=== PATIENT | male | born 1975 | race Caucasian/White ===

== ENCOUNTER 2022-09-25 06:32 | Emergency (ER) | payer OTHER, SELFPAY ==
[2022-09-25 06:36] VITALS: BP 153/93; PULSE 104; RESP 18; TEMP 36.2; O2SAT 97; BMI 37.7
--- NOTE | 2022-09-25 06:57 | CRLHL7_ITS ---
For Patients: As a result of the Century Cures Act, medical imaging exams and procedure reports are released immediately into your electronic medical record. You may view this report before your referring provider. If you have questions, please contact your health care provider. Indication : Fall TECHNIQUE: Two views right shoulder. COMPARISON: None. FINDINGS: The alignment appears anatomic. No acute fracture is detected. There is suspected mild glenohumeral joint degenerative change and there is mild/moderate acromioclavicular joint arthrosis with inferior proliferative osteophyte formation arising from the distal clavicle. The included right lung. IMPRESSION: No acute osseous abnormality detected. Dictated by Sandro Mcdonald MD @ 09/25/2022 7:17:16 AM (Electronically Signed)
--- NOTE | 2022-09-25 07:32 | ED_ITS ---
HPI - General Adult General Date Seen: 09/25/22 Chief complaint: Extremity Pain/Injury, Upper Stated complaint: Fell, R arm injury Time Seen by Provider: 09/25/22 06:44 Source: patient Mode of arrival: ambulatory Limitations: no limitations History of Present Illness HPI narrative: Patient is a 47-year-old male who was going to get into his truck this morning and did not see ice on the driveway. He slipped and landed on his right shoulder. He presents emergency department with complaints that he is having difficulty moving it. He has had a torn bicep on that side that was never repa ired. Related Data Home Medications Medication Instructions Recorded Confirmed ibuprofen 200 mg tablet (Advil) 400 mg PO Q6H 09/24/22 09/24/22 lisinopril 2.5 mg tablet 2.5 mg PO QDAY 09/24/22 09/24/22 oxycodone 5 mg capsule 5 mg PO BID PRN 09/24/22 09/24/22 simvastatin 5 mg tablet 5 mg PO QDAY 09/24/22 09/24/22 Allergies Allergy/AdvReac Type Severity Reaction Status Date / Time No Known Drug Allergies Allergy Verified 09/25/22 06:39 Review of Systems Narrative: He is in the process of getting scheduled for a right hip replacement. He is on medication for hypertension and hyperlipidemia. He gets most of his care in the [facility] in [place]. Review of systems is otherwise noted to be negative. [facility] Medical History (Updated 09/25/22 @ 07:31 by Melvin Cowart MD) Hyperlipidemia Hypertension Obesity Osteoarthritis of right hip Surgical History (Updated 09/24/22 @ 14:31 by Allison Hilliard RN) History of total left knee replacement (08/2020) History of total right knee replacement (05/2021) Family History (Updated 09/24/22 @ 14:22 by Allison Hilliard RN) Father Degenerative arthritis Social History Smoking Status: Never smoker Do you use any of these nicotine containing products: None How often do you have a drink containing alcohol: 4 or more times a week Alcohol type: beer How many standard drinks containing alcohol do you have on a typical day: 3 or 4 How often do you have six or more drinks on one occasion: Less than monthly AUDIT-C Alcohol total score: 6 Non-prescribed substance use: denies use and opiods/painkillers Caffeine: No Exam Narrative: Exam Narrative: On exam there is no outward evidence of trauma to the right shoulder. He has limited ability to fully abduct or elevate shoulder. There is tenderness anteriorly and laterally. Normal neurologic exam. No bony tenderness. Const: Vital Signs, click to edit/add: Vital Signs - 24 hr 09/25/22 06:36 Temperature 97.2 F L Pulse Rate [Pulse Oximeter] 104 H Respiratory Rate 18 Blood Pressure [Le ft Upper Arm] 153/93 H Pulse Oximetry 97 Oxygen Delivery Me thod Room Air Course Course Hospital Course: Patient seen and examined. X-ray of the right shoulder is negative for fracture. Vital Signs Vital signs: Initial Vital Signs Temperature 97.2 F L 09/25/22 06:36 Temperature Source Temporal Artery Scan 09/25/22 06:36 Pulse Rate 104 H 09/25/22 06:36 Pulse Rhythm 09/25/22 06:36 Pulse Strength 3+ Normal 09/25/22 06:36 Respiratory Rate 18 09/25/22 06:36 Blood Pressure 153/93 H 09/25/22 06:36 Blood Pressure Mean 113 09/25/22 06:36 Blood Pressure Position Sitting 09/25/22 06:36 Pulse Oximetry 97 09/25/22 06:36 Oxygen Delivery Method 09/25/22 06:36 Vital Signs Temperature 97.2 F L 09/25/22 06:36 Pulse Rate 104 H 09/25/22 06:36 Respiratory Rate 18 09/25/22 06:36 Blood Pressure 153/93 H 09/25/22 06:36 Pulse Oximetry 97 09/25/22 06:36 Oxygen Delivery Method 09/25/22 06:36 Temperature 97.2 F L 09/25/22 06:36 Pulse Rate 104 H 09/25/22 06:36 Respiratory Rate 18 09/25/22 06:36 Blood Pressure 153/93 H 09/25/22 06:36 Pulse Oximetry 97 09/25/22 06:36 Oxygen Delivery Method 09/25/22 06:36 Discharge Plan Discharge Clinical Impression: Injury of right shoulder Patient Disposition: Home, Self-Care Condition: Stable Additional Instructions: Rest, ice, Ibuprofen, gentle range of motion. Follow up in the clinic if no improvement over the next 3-5 days. Prescriptions: No Action simvastatin 5 mg tablet 5 mg PO QDAY lisinopril 2.5 mg tablet 2.5 mg PO QDAY oxycodone 5 mg capsule 5 mg PO BID PRN ibuprofen [Advil] 200 mg tablet 400 mg PO Q6H Follow Up/Referrals: Blanca Villagomez MD [Primary Care Provider] - Stand Alone Forms: [facility] Info Instructions
== END 2022-09-25 07:36 | disposition home or self-care (01) ==
PROVIDERS: Emergency Provider Family Medicine; PCP Family Medicine
DX: M25.511 Pain in right shoulder (principal); W00.9XXA Unspecified fall due to ice and snow, initial encounter
CPT/HCPCS: 73030; 99282; 99283

== ENCOUNTER 2022-10-14 09:37 | Day surgery (SDC) | payer OTHER, SELFPAY ==
[2022-10-14] VITALS (27 sets, daily range): BP systolic 105–146; BP diastolic 60–107; PULSE 67–110; RESP 16–18; TEMP 36.1–36.8; O2SAT 92–98; BMI 34.7
[2022-10-14] MEDS: ACETAMINOPHEN 500 MG TABLET 1000 MG PO ×3 (09:50→21:03)
[2022-10-14] MEDS: CELECOXIB 200 MG CAPSULE PO ×2 (09:50→21:02)
[2022-10-14] MEDS: OXYCODONE (CR) 10 MG TAB.ER.12H PO (09:50)
[2022-10-14] MEDS: SODIUM CHLORIDE 0.9 % (FLUSH) 10 ML SYRINGE IVF (10:00)
[2022-10-14] MEDS: LACTATED RINGERS 1000 ML 1,000 ML 100 ML IV ×2 (10:00→12:49)
--- NOTE | 2022-10-14 10:35 | CRLHL7_ITS ---
For Patients: As a result of the Century Cures Act, medical imaging exams and procedure reports are released immediately into your electronic medical record. You may view this report before your referring provider. If you have questions, please contact your health care provider. INDICATION: Follow up a right hip arthroplasty. TECHNIQUE: AP pelvis and cross table lateral view of the right hip. FINDINGS: New right hip arthroplasty. The components are adequately aligned and well seated. Air within the soft tissues of the proximal lateral thigh compatible with recent surgery. IMPRESSION: Right hip arthroplasty. Dictated by Carlos Lang MD @ 10/14/2022 3:01:04 PM (Electronically Signed)
--- NOTE | 2022-10-14 10:42 | W.ANESCHARGE ---
Anesthesia Charges Start Date/Time Anesthesia Start Date: 10/14/22 Anesthesia Start Time: 11:22 Stop Date/Time Anesthesia Stop Date: 10/14/22 Anesthesia Stop Time: 14:07
[2022-10-14] MEDS: fentaNYL 100 MCG/2 ML inj IVP (10:59)
[2022-10-14] MEDS: MIDAZOLAM HCL 1 MG/ML inj IVP (10:59)
[2022-10-14] MEDS: SCOPOLAMINE 1 MG/3 DAY PATCH 1 PATCH TRANSDERMA (11:05)
--- NOTE | 2022-10-14 11:11 | SUR.PREOP ---
TIME?OUT:?1058 PT/Kathleen CONTRERAS RN/Cindy ADEN MDA?VERIFICATION?OF?SURGICAL?SITE,?PROCEDURE,?AND?CONSENT OBTAINED?PRIOR?TO?INVASIVE?PROCEDURE.
--- NOTE | 2022-10-14 11:30 | CRLHL7_ITS ---
For Patients: As a result of the Century Cures Act, medical imaging exams and procedure reports are released immediately into your electronic medical record. You may view this report before your referring provider. If you have questions, please contact your health care provider. INDICATION: Right hip arthroplasty. TECHNIQUE: Single portable spot intraoperative images the right hip. Fluoroscopic guidance utilized. FINDINGS: A single spot image of the right hip demonstrates a right hip arthroplasty. The components are adequately aligned. 44.9 seconds fluoroscopy time utilized intraoperatively. IMPRESSION : 44.9 seconds fluoroscopy time utilized intraoperatively. Dictated by Carlos Lang MD @ 10/14/2022 2:54:19 PM (Electronically Signed)
[2022-10-14] MEDS: CEFAZOLIN 2 GM in 0.9 % SODIUM CHLORIDE Mini-bag 100 ML IVPB ×2 (11:31→17:05)
[2022-10-14] MEDS: TRANEXAMIC ACID 100 MG/ML INJ 1000 MG IV (11:35)
--- NOTE | 2022-10-14 11:55 | W.PM.NB ---
Nerve Block Nerve Block Time Seen by Provider: 11:02 Date Seen: 10/14/22 Type of block requested by surgeon for post-operative analgesia: FRANKY/LFCN Side: right Time out performed: Yes Verification of patient name: Yes Verification of date of : Yes Site marking: site marked Name of person performing procedure: Cj Continuous monitoring Was continuous monitoring of O2 sat, B/P, diagnostic cardiac sonographer, recorded every 15 minutes?: Yes Procedure Checklist: sterile prep, needles and gloves Ultrasound guided. Images saved: Yes Medications given in 5ml increments after negative aspiration: Ropivicaine %: 0.5 mL: 30 Needle gauge: 20 Decadron (mg): 10 Precedex (mcg): 25 Patient tolerated procedure well: Yes Additional comments: Needle noted below psoas tendon needle noted adjacent to LFCN Block Charges Block Charge (with Pro Fee): Other Periph Nerve Block Use of Ultrasound Machine for Block: Yes- US Guidance/pain block
--- NOTE | 2022-10-14 12:56 | SUR.OPER ---
PATIENT QUESTIONS ANSWERED SATISFACTORILY PREOPERATIVELY.? PATIENT BROUGHT TO OR #4 PER CART AFTER ADMINISTRATION OF A BLOCK.? Patient positioned supine on OR #4 bed.? The perioperative?team supported arms bilaterally on arm boards.? Final approval of positioning by surgeon.
--- NOTE | 2022-10-14 13:22 | P.ORPRC_ITS ---
Procedure Note Date of procedure: 10/14/22 Procedure: PREOPERATIVE DIAGNOSIS: 1. Right hip osteoarthritis, severe, primary 2. Obesity-BMI 34.8 POSTOPERATIVE DIAGNOSIS: 1. Right hip osteoarthritis, severe, primary 2. Obesity-BMI 34.8 PROCEDURE: 1. Right total hip arthroplasty-anterior approach of note, 25% added difficulty for this case due to combination of patient's shear mass of 116 kg, young muscular male, and a BMI of 34.8. This combination resulted in substantially increased depth of the wound, tightness of structures, and difficulty with exposure requiring deeper retractors and more assistance. 2. [id number] - intraoperative fluoroscopy up to 1 hour. SURGEON: Parviz Howard MD. APPRAISER AUDITOR: Arslan Marroquin PA-C; LITO Camp - Of note, a skilled clinical trial assistant was critical for this case to aid in patient positioning, tissue retraction, limb manipulation/positioning, and closure. ANESTHESIA: General endotracheal anesthetic EBL: 400 mL IMPLANTS: DePuy J&J uncemented total hip [place] cup size 56, hole eliminator, +4 neutral liner Actis stem, standard offset, size 6 +8.5 mm ceramic 36 mm head COMPLICATIONS: None evident INDICATIONS: The patient is a pleasant 47-year-old male who has experienced severe right hip pain and difficulty bearing weight. Workup included x-rays which revealed severe osteoarthrosis in the hip. Given the deformity, the dysfunction, and the pain, as well as the failure of nonoperative management, recommendation was made for surgery. FINDINGS: Full-thickness chondral loss broadly throughout the femoral head with significant osteophytosis around the femoral head/neck junction and around the perimeter of the acetabulum. Moderate effusion upon entering the joint. Significantly tight, muscular tissues surrounding the hip joint with a thick capsule. DESCRIPTION OF PROCEDURE: Following a thorough discussion of risks, benefits, and alternatives consent was obtained and the right hip was marked. The patient was brought to the operating room and placed supine on the operating table. Induction of anesthesia was undertaken. 2 g IV Ancef and 1 g tranexamic acid was administered within 1 hr of incision preoperatively. Proper time-out was performed identifying proper patient, site, procedure. The operative extremity was prepped and draped in the appropriate sterile fashion using ChloraPrep after the patient was positioned on the [place] table with head in neutral alignment and all bony prominences well padded. C-arm fluoroscopic imaging was utilized to confirm proper pelvis rotation and position, and to get true AP films of both the contralateral left, and the affected right hip. This is for comparison. A longitudinal incision was made starting approximately 1 cm distal to the ASIS, and 3-4 cm lateral. The incision was extended distally aiming toward the lateral border the patella. Sharp incision through skin and bovie cautery through the subcutaneous tissue allowed identification of the TFL fascia. This was sharply divided, and the fascia bluntly released from the muscle fibers as we dissected medial. Upon coming to the medial border, we were able to retract the TFL laterally, and penetrated the deeper fascia and identify the crossing circumflex vessels. These were ligated/cauterized. The rectus was elevated from the capsule, and retractors placed laterally and medially along the femoral neck to help with visualization of the capsule. We then performed an inverted T capsulotomy. The capsule was tagged for later repair. Retractors were placed inside the capsule. The femoral neck was visualized after releasing medially down to the lesser trochanter, along the saddle laterally, and up onto the acetabulum. The femoral neck cut was made in line with our preoperative templating. The head was removed in a single piece, and sized. We turned our attention to acetabular preparation. Initially, the labrum was resected from around the perimeter, the pulvinar was excised, allowing us to visualize the false wall. We started the reaming with a 43 mm reamer. This was medialized down to the true wall. We then enlarged our reamers sequentially up to one size less than the selected cup size. We trialed at the same size and found it to have an excellent fit. The selected cup was then opened, inserted, and impacted in line with the goal of 40? of abduction, and 20-25? of anteversion. This was confirmed on C-arm fluoroscopic imaging to be in the appropriate/goal position. Once the cup was placed we placed a hole eliminator and a liner consistent with preop planning. Attention was turned to the femoral preparation. The limb was extended, externally rotated, and adducted. The posteromedial capsule was released, as retractors were placed allowing excellent access to the proximal femur. Initially a box spring frame builder was followed by canal finder followed by various broaches. We broached sequentially up to the size noted above, found it to have excellent rotational control, and trialing various heads and necks, revealed that appropriate neck offset, and the above noted head size provided the greatest stability, and confucianist of length, and offset. C-arm fluoroscopic imaging confirmed position of the stem, as well as leg lengths, which were compared with the pre procedure all fluoroscopic images. Trial implants were removed, the real femoral stem inserted, as was the appropriate head. After reducing, the leg was placed through range of motion and stability was confirmed anterior, posterior, and lateral. A 3 min Betadine soak was then performed, and thorough irrigation with normal saline followed. Closure of the capsule was performed with #1 PDS. Bleeding was confirmed to be controlled at this stage, and the TFL fascia was closed with #0 strata fix. Subcutaneous, and subcuticular closure was performed with 2-0 Vicryl and 4-0 Monocryl, respectively. Dressings were applied, and the patient was awoken from anesthesia and transferred the PACU in stable condition. A skilled clinical trial assistant was critical for this case to aid in patient positioning, tissue retraction, acetabular and proximal femoral exposure, limb manipulation/positioning, dislocation/relocation, patient safety, and closure. * again, 25% added difficulty for this case due to combination of patient's she ar mass of 116 kg, young muscular male, and obesity (BMI of 34.8). This combination resulted in substantially increased depth of the wound, tightness of structures, and difficulty with exposure requiring deeper retractors and more assistance. PLAN: 1. Weight bear as tolerated operative extremity. 2. 23 hr perioperative antibiotics. 3. Ice. 4. PT/OT consults for ambulation assistance/mobility education. 5. Social work consult for discharge planning. 6. DVT prophylaxis with at SCDs, Avila Blankenship, and Xarelto x5 days followed by aspirin for a total of 1 month..
--- NOTE | 2022-10-14 14:10 | W.ANESCHARGE ---
Anesthesia Charges Start Date/Time Anesthesia Start Date: 10/14/22 Anesthesia Start Time: 11:22 Stop Date/Time Anesthesia Stop Date: 10/14/22 Anesthesia Stop Time: 14:07
[2022-10-14] MEDS: HYDROmorphone 0.5 mg/0.5 ml inj IVP ×3 (14:22→15:34)
--- NOTE | 2022-10-14 15:10 | SUR.PHASEI ---
Patient meets parameters for discharge from pacu. Upon departure, patient was repositioning himself in the bed and he placed pressure on the IV. The IV fell out of the site/vein. The catheter was intact. Jose Juan Michel said to continue to Med Surg and they can restart the IV.
--- NOTE | 2022-10-14 15:36 | PM.IMCN1 ---
Date of Consult Consult date: 10/14/22 Requesting Physician: Orthopedics Primary Care Provider: Evangelist Benjamin MD Consult Narrative Reason for consult: Management of medical problems following hip surgery Narrative: David Reyes is a 47 year old male underwent right total hip arthroplasty by Dr. Howard today. Procedure was uncomplicated. Postoperatively he reports having pain in his right hip and extending down his right leg. He is not having numbness or weakness in his right leg. That pain going down his right leg was present prior to surgery as well. He is not having chills, nausea, dyspnea. Preoperatively reports he was doing well he had no recent illness or injury. He had a preop physical over there were no perioperative concerns identified Review of Systems Narrative: No recent illness or injury. His notes that he does snore. He is not interested in evaluation of sleep apnea. 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 Code status is full. is healthcare power of employment law attorney. His home has no steps to get in to the main level and he can live on the main level without walking on stairs. Smoking Status: Never smoker Do you use any of these nicotine containing products: None How often do you have a drink containing alcohol: 4 or more times a week Alcohol type: beer How many standard drinks containing alcohol do you have on a typical day: 3 or 4 How often do you have six or more drinks on one occasion: Less than monthly AUDIT-C Alcohol total score: 6 Non-prescribed substance use: denies use and opiods/painkillers Caffeine: No Meds Home Medications and Allergies Home Medications Medication Instructions Recorded Confirmed Type ibuprofen 200 mg tablet (Advil) 400 mg PO Q6H 09/24/22 10/14/22 History clobetasol 0.05 % topical cream 1 applic topical BID PRN 10/14/22 10/14/22 History lisinopril 10 2 tab PO DAILY 10/14/22 10/14/22 History mg-hydrochlorothiazide 12.5 mg tablet oxycodone 5 mg tablet 5 - 10 mg PO Q4H PRN 10/14/22 10/14/22 History simvastatin 20 mg tablet 20 mg PO HS 10/14/22 10/14/22 History Home Medication Comments: Patient reports taking ibuprofen 800 mg every 4 hours or a total of 4800 mg per day. Allergies Allergy/AdvReac Type Severity Reaction Status Date / Time No Known Drug Allergies Allergy Verified 10/14/22 10:05 Exam Narrative: Exam Narrative: He is alert and appears in no distress. Eyes normal. Oropharynx with small airway. Neck is supple without mass or adenopathy. Respirations are clear to auscultation. Cardiovascular: S1, S2, regular rate and rhythm. No murmur gallop or rub. Abdomen: Bowel sounds active. Abdomen is soft without tenderness or mass. Extremities examined. He has intact pedal pulses. No significant edema. He has intact sensation in his feet. He moves his feet and ankles well without weakness. No sign of trauma, bruising, redness, rash on either lower extremity. Const: Vital Signs, click to edit/add: Vital Signs - 24 hr 10/14/22 10:07 10/14/22 10:56 10/14/22 11:00 Temperature 97.9 F Pulse Rate 110 H 81 80 Respiratory Rate 16 16 16 Blood Pressure 135/90 H 138/107 H 120/84 Pulse Oximetry 93 97 97 Oxygen Delivery Me thod Room Air Nasal Cannula Nasal Cannula Oxygen Flow Rate 2 2 10/14/22 14:03 10/14/22 14:20 10/14/22 14:25 Temperature 97 F L Pulse Rate 74 81 81 Respiratory Rate 16 16 16 Blood Pressure 120/73 112/75 125/71 Pulse Oximetry 92 97 97 Oxygen Delivery Me thod Nasal Cannula Nasal Cannula Oxygen Flow Rate 4 3 10/14/22 14:35 10/14/22 14:05 10/14/22 14:10 Temperature Pulse Rate 80 70 74 Respiratory Rate 16 16 16 Blood Pressure 114/61 107/71 110/67 Pulse Oximetry 98 95 95 Oxygen Delivery Me thod Oxygen Flow Rate 10/14/22 14:15 10/14/22 14:30 10/14/22 14:40 Temperature Pulse Rate 79 67 73 Respiratory Rate 16 16 18 Blood Pressure 116/71 114/70 124/67 Pulse Oximetry 95 98 97 Oxygen Delivery Me thod Nasal Cannula Nasal Cannula Room Air Oxygen Flow Rate 4 2 10/14/22 14:45 10/14/22 14:50 10/14/22 14:56 Temperature 97.1 F L Pulse Rate 73 93 80 Respiratory Rate 18 16 16 Blood Pressure 124/67 124/67 111/60 Pulse Oximetry 97 96 98 Oxygen Delivery Me thod Room Air Room Air Oxygen Flow Rate Documenting provider has reviewed patient's vital signs: yes Assessment and Plan Assessment and plan (1) Osteoarthritis of right hip: Problem comment: Severe, status post right total hip arthroplasty by Dr. Howard 10/14/2022. Routine therapy and pain management. Status: Chronic (2) Sleep apnea: Problem comment: Monitor for nocturnal hypoxia. Outpatient follow-up if willing. Status: Suspected (3) Obesity: Status: Acute (4) Hypertension: Problem comment: Resume blood pressure medicines as blood pressure allows Status: Acute (5) Pain of right lower extremity: Problem comment: Pain shooting down his right leg preexisted his hip surgery. No obvious radicular findings or neuro deficits noted today. Monitor as he recovers from surgery. Status: Acute Plan Admit to the hospital for routine pain management and therapy. Will monitor and manage his other medical problems during his hospital stay. Anticipate discharge to home tomorrow for outpatient follow-up. Total time spent is 40 minutes, 30 minutes in coordination of care discussing with patient other providers ongoing evaluation management of medical problems following surgery
[2022-10-14] MEDS: LACTATED RINGERS 1000 ML 1,000 ML 75 ML IV (15:41)
--- NOTE | 2022-10-14 19:28 | PC.NURSE ---
shift note: pt to room @ 1510 via bed. pt a&ox3. post vss intiated. New IV to Lt FA started with 1 attempt. LS clr. IS to 1999 indept. Pt moving bilat l/e w/o difficulty. cms intact. PP+ bilat. Pt ambulated in [place] 1/walker 400ft with steady gait. drsg to rt thigh c/d/i with active ice in place. Pt tolerating regular diet.
[2022-10-14] MEDS: OXYCODONE 5 MG TABLET PO (19:30)
[2022-10-14] MEDS: SIMVASTATIN 20 MG TABLET PO (21:02)
[2022-10-14] MEDS: SENNOSIDES 1 TAB TABLET 2 TAB PO (21:03)
--- NOTE | 2022-10-14 23:01 | PC.NURSE ---
[id number]: Pain well controlled. Ambulates well with assist x1 with walker and GB. Walked unit approx 300ft. Drinking a lot of water, about 3,000 PO intake this evening. Pt unable to void post-op. Compound Worker offered bladder scan and straight cath. Pt refusing at this time and requests additional time to attempt voiding. Will reapproach. Surgical dressing C,D,&I with active ice.
[2022-10-15 00:12] VITALS: BP 145/85; PULSE 81; RESP 18; TEMP 37.1; O2SAT 93
[2022-10-15] MEDS: CEFAZOLIN 2 GM in 0.9 % SODIUM CHLORIDE Mini-bag 100 ML IVPB ×2 (00:20→08:09)
[2022-10-15] MEDS: OXYCODONE 5 MG TABLET PO ×4 (00:21→08:19)
[2022-10-15] MEDS: ACETAMINOPHEN 500 MG TABLET 1000 MG PO ×2 (03:23→10:12)
[2022-10-15 03:28] VITALS: BP 135/82; PULSE 74; RESP 16; TEMP 37; O2SAT 95
--- NOTE | 2022-10-15 05:55 | PC.NURSE ---
[id number]: Patient cooperative with cares. Rates pain 10/25. PRN Oxycodone and active ice for relief. CMS intact. Denies N/V. Walk the halls x1 and moving well. Dressing to R. hip C/D/I.
[2022-10-15 06:53] LABS: Basophils Percent Auto 0.1 % (0.0-3.0); Hematocrit 31.9 % (37.0-53.0); Immature Granulocytes Pct Auto 0.3 %; Lymphocytes Percent Auto 6.8 % (20-44); Mean Corpuscular HGB Conc 35 gm/dL (32-36); Mean Corpuscular Hemoglobin 31 pg (26-34); Mean Corpuscular Volume 91 fL (80-100); Monocytes Percent Auto 5.5 % (0.0-11.0); Neutrophils Percent Auto 87.3 % (42.0-72.0); Platelet Count* 220 K/uL (140-440); RDW Coefficient of Variation % 11.9 % (11.5-15.5); Red Blood Count 3.51 m/uL (4.30-5.90); White Blood Count* 13.76 K/uL (4.50-11.00)
[2022-10-15 06:57] LABS: Slide Review Reflex No
[2022-10-15 06:58] LABS: Potassium* 4.1 mmol/L (3.6-5.1); Sodium* 129 mmol/L (135-149)
[2022-10-15 07:01] LABS: Blood Urea Nitrogen* 21 mg/dL (5-24); Creatinine* 1.2 mg/dL (0.5-1.5); Est. Creatinine Clearance* 82.63; Estimated Glomerular Filt Rate 75 ml/min
[2022-10-15 07:30] VITALS: BP 120/62; PULSE 84; RESP 18; TEMP 37; O2SAT 95
[2022-10-15] MEDS: SENNOSIDES 1 TAB TABLET 2 TAB PO (08:17)
[2022-10-15] MEDS: CELECOXIB 200 MG CAPSULE PO (08:18)
[2022-10-15] MEDS: RIVAROXABAN 10 MG TABLET PO (08:19)
--- NOTE | 2022-10-15 09:22 | P.ORPN_ITS ---
Subjective Subjective Date Seen: 10/15/22 Principal diagnosis: Status postop day 1, right total hip arthroplasty - anterior approach Interval history: Patient reports doing well. No acute events over night. Pain managed with scheduled /PRN medications and ice. DVT prophylaxis rivaroxaban, bilateral knee high Avila stockings, and SCDs. Denies fevers, chills, aches, N/V, CP, SOB/WESTFALL, tachycardia, or lightheadedness. Denies any further right ankle pain that he w as experiencing in PACU. Ortho Exam Narrative Exam Narrative: -Patient appears comfortable in recliner; no apparent acute distress -Alert and oriented times 3 -Operative hip swollen; soft tissues supple; no obvious erythema. Ecchymosis minimal. Warmth appropriate -Surgical dressing clean, dry, intact; no obvious drainage, no erythematous streaking peripheral to the bandage -Bilateral calves soft and supple; no significant swelling, edema, tenderness, erythema, discoloration, warmth, or palpable cords -2+ DP/PT pulses, intact dermatomes and myotomes distally (5/5 strength). No numbness about the lateral femoral cutaneous nerve distribution. Const Vital Signs, click to edit/add: Vital Signs - 24 hr 10/14/22 10:07 10/14/22 10:56 10/14/22 11:00 Temperature 97.9 F Pulse Rate 110 H 81 80 Pulse Rate [Pulse Oximeter] Respiratory Rate 16 16 16 Blood Pressure 135/90 H 138/107 H 120/84 Blood Pressure [Left Arm] Pulse Oximetry 93 97 97 Oxygen Delivery Method Room Air Nasal Cannula Nasal Cannula Oxygen Flow Rate 2 2 10/14/22 14:03 10/14/22 14:20 10/14/22 14:25 Temperature 97 F L Pulse Rate 74 81 81 Pulse Rate [Pulse Oximeter] Respiratory Rate 16 16 16 Blood Pressure 120/73 112/75 125/71 Blood Pressure [Left Arm] Pulse Oximetry 92 97 97 Oxygen Delivery Method Nasal Cannula Nasal Cannula Oxygen Flow Rate 4 3 10/14/22 14:35 10/14/22 14:05 10/14/22 14:10 Temperature Pulse Rate 80 70 74 Pulse Rate [Pulse Oximeter] Respiratory Rate 16 16 16 Blood Pressure 114/61 107/71 110/67 Blood Pressure [Left Arm] Pulse Oximetry 98 95 95 Oxygen Delivery Method Oxygen Flow Rate 10/14/22 14:15 10/14/22 14:30 10/14/22 14:40 Temperature Pulse Rate 79 67 73 Pulse Rate [Pulse Oximeter] Respiratory Rate 16 16 18 Blood Pressure 116/71 114/70 124/67 Blood Pressure [Left Arm] Pulse Oximetry 95 98 97 Oxygen Delivery Method Nasal Cannula Nasal Cannula Room Air Oxygen Flow Rate 4 2 10/14/22 14:45 10/14/22 14:50 10/14/22 14:56 Temperature 97.1 F L Pulse Rate 73 93 80 Pulse Rate [Pulse Oximeter] Respiratory Rate 18 16 16 Blood Pressure 124/67 124/67 111/60 Blood Pressure [Left Arm] Pulse Oximetry 97 96 98 Oxygen Delivery Method Room Air Room Air Oxygen Flow Rate 10/14/22 15:10 10/14/22 15:10 10/14/22 15:10 Temperature 98 F 98 F 98 F Pulse Rate 83 Pulse Rate [Pulse Oximeter] 86 Respiratory Rate 16 16 18 Blood Pressure Blood Pressure [Left Arm] 105/71 105/71 113/70 Pulse Oximetry 98 98 Oxygen Delivery Method Room Air Room Air Oxygen Flow Rate 10/14/22 17:41 10/14/22 15:30 10/14/22 15:45 Temperature 98 F 98 F 98.2 F Pulse Rate Pulse Rate [Pulse Oximeter] 86 99 98 Respiratory Rate 18 18 18 Blood Pressure Blood Pressure [Left Arm] 113/70 111/75 128/75 Pulse Oximetry 98 98 98 Oxygen Delivery Method Room Air Room Air Room Air Oxygen Flow Rate 2 10/14/22 16:26 10/14/22 16:30 10/14/22 17:01 Temperature 98.2 F 98 F 98.2 F Pulse Rate Pulse Rate [Pulse Oximeter] 97 70 105 H Respiratory Rate 18 18 18 Blood Pressure Blood Pressure [Left Arm] 114/70 134/99 H 106/62 Pulse Oximetry 98 95 98 Oxygen Delivery Method Room Air Room Air Room Air Oxygen Flow Rate 10/14/22 18:00 10/14/22 21:03 10/14/22 19:00 Temperature 98.3 F 98.2 F Pulse Rate Pulse Rate [Pulse Oximeter] 89 86 Respiratory Rate 18 18 Blood Pressure Blood Pressure [Left Arm] 125/74 128/78 Pulse Oximetry 94 97 Oxygen Delivery Method Room Air Room Air Oxygen Flow Rate 10/14/22 20:00 10/14/22 22:59 10/15/22 00:12 Temperature 98.7 F Pulse Rate Pulse Rate [Pulse Oximeter] 82 76 81 Respiratory Rate 18 18 18 Blood Pressure Blood Pressure [Left Arm] 146/85 H 132/78 145/85 H Pulse Oximetry 95 96 93 Oxygen Delivery Method Room Air Room Air Room Air Oxygen Flow Rate 10/15/22 03:28 Temperature 98.6 F Pulse Rate Pulse Rate [Pulse Oximeter] 74 Respiratory Rate 16 Blood Pressure Blood Pressure [Left Arm] 135/82 Pulse Oximetry 95 Oxygen Delivery Method Room Air Oxygen Flow Rate Assessment and Plan Assessment and plan (1) Osteoarthritis of right hip: Problem details: Severe, status post (POD 1) right total hip arthroplasty by Dr. Howard 10/14/2022. Routine therapy and pain management. Status: Chronic (2) Sleep apnea: Problem details: Monitor for nocturnal hypoxia. Outpatient follow-up if willing. Status: Suspected (3) Obesity: Status: Acute (4) Hypertension: Problem details: Resume blood pressure medicines as blood pressure allows Status: Acute (5) Pain of right lower extremity: Problem details: Pain shooting down his right leg preexisted his hip surgery. No obvious radicular findings or neuro deficits noted today. Monitor as he recovers from surgery. Status: Acute Plan - Complete 23 hour perioperative antibiotics. - PT/OT consult for education and assistance. - Social work consult for discharge planning - Prescribed analgesics as needed - DVT prophylaxis: Rivaroxaban, bilateral knee high Avila Hose stockings and SCDs - We discussed limiting his ibuprofen use, as he has classically taken 800 mg ibuprofen every 4 hours. He says his hip feels much better than it did when he walked into surgery, thus he feels there will not be need for this ibuprofen in the future - Anticipation is for discharge to home with spouse 10/15/2022 if the patient remains medically stable, pain is controlled, and they are safe with mobil ization.
--- NOTE | 2022-10-15 09:26 | P.DS_ITS ---
DS: Providers Provider Date Seen: 10/15/22 Date of admission: Med/Surg Recovery 10/14/2022 Primary care physician: Evangelist Benjamin MD Consults: 10/14/22 15:07 Consult to Occupational Therapy [CONS] Routine Comment: Reason(s) for OT Consult:: ADLs Prior to Discharge Any Restrictions?:: No Restrictions Comment: Consult to Physical Therapy [CONS] Routine Comment: Ambulate in the [place] today Reason(s) for PT Consult:: Evaluate and Treat Any Restrictions?:: No Restrictions Comment: Nursing Activity Consult to Physician [CONS] Routine Comment: Consulting Provider: Hospitalists Has provider been notified: No Consult to Donor Relations Associate [CONS] Routine Comment: Reason for Consult:: Discharge Planning Needs Attending Physician on discharge: Parviz Howard MD Date of Discharge: 10/15/22 DS: Diagnosis Discharge Diagnosis (1) Osteoarthritis of right hip: Status: Chronic Problem details: Severe, status post (POD 1) right total hip arthroplasty by Dr. Howard 10/14/2022. Routine therapy and pain management. DS: Summary Hospital Course Hospital Course: The patient has a history of right hip osteoarthritis, primary, severe. After appropriate preoperative evaluation, the patient underwent right total hip arthroplasty. Postoperatively given anticoagulation for deep vein thrombosis prophylaxis. They progressed to PT/OT and were felt ready and prepared for discharge to home with appropriate pain medication and anticoagulation medications. Status at Discharge Functional status at discharge: uses cane/walker Overall status at discharge: patient is progressing back to baseline Time Spent with Patient Time attestation: Total time spent providing and/or coordinating discharge services: Time spent: Less than 30 minutes Exam Const: Vital Signs, click to edit/add: Vital Signs - 24 hr 10/14/22 10:07 10/14/22 10:56 10/14/22 11:00 Temperature 97.9 F Pulse Rate 110 H 81 80 Pulse Rate [Pulse Oximeter] Respiratory Rate 16 16 16 Blood Pressure 135/90 H 138/107 H 120/84 Blood Pressure [Le ft Arm] Pulse Oximetry 93 97 97 Oxygen Delivery Me thod Room Air Nasal Cannula Nasal Cannula Oxygen Flow Rate 2 2 10/14/22 14:03 10/14/22 14:20 10/14/22 14:25 Temperature 97 F L Pulse Rate 74 81 81 Pulse Rate [Pulse Oximeter] Respiratory Rate 16 16 16 Blood Pressure 120/73 112/75 125/71 Blood Pressure [Le ft Arm] Pulse Oximetry 92 97 97 Oxygen Delivery Me thod Nasal Cannula Nasal Cannula Oxygen Flow Rate 4 3 10/14/22 14:35 10/14/22 14:05 10/14/22 14:10 Temperature Pulse Rate 80 70 74 Pulse Rate [Pulse Oximeter] Respiratory Rate 16 16 16 Blood Pressure 114/61 107/71 110/67 Blood Pressure [Le ft Arm] Pulse Oximetry 98 95 95 Oxygen Delivery Me thod Oxygen Flow Rate 10/14/22 14:15 10/14/22 14:30 10/14/22 14:40 Temperature Pulse Rate 79 67 73 Pulse Rate [Pulse Oximeter] Respiratory Rate 16 16 18 Blood Pressure 116/71 114/70 124/67 Blood Pressure [Le ft Arm] Pulse Oximetry 95 98 97 Oxygen Delivery Me thod Nasal Cannula Nasal Cannula Room Air Oxygen Flow Rate 4 2 10/14/22 14:45 10/14/22 14:50 10/14/22 14:56 Temperature 97.1 F L Pulse Rate 73 93 80 Pulse Rate [Pulse Oximeter] Respiratory Rate 18 16 16 Blood Pressure 124/67 124/67 111/60 Blood Pressure [Le ft Arm] Pulse Oximetry 97 96 98 Oxygen Delivery Me thod Room Air Room Air Oxygen Flow Rate 10/14/22 15:10 10/14/22 15:10 10/14/22 15:10 Temperature 98 F 98 F 98 F Pulse Rate 83 Pulse Rate [Pulse Oximeter] 86 Respiratory Rate 16 16 18 Blood Pressure Blood Pressure [Le ft Arm] 105/71 105/71 113/70 Pulse Oximetry 98 98 Oxygen Delivery Me thod Room Air Room Air Oxygen Flow Rate 10/14/22 17:41 10/14/22 15:30 10/14/22 15:45 Temperature 98 F 98 F 98.2 F Pulse Rate Pulse Rate [Pulse Oximeter] 86 99 98 Respiratory Rate 18 18 18 Blood Pressure Blood Pressure [Le ft Arm] 113/70 111/75 128/75 Pulse Oximetry 98 98 98 Oxygen Delivery Me thod Room Air Room Air Room Air Oxygen Flow Rate 2 10/14/22 16:26 10/14/22 16:30 10/14/22 17:01 Temperature 98.2 F 98 F 98.2 F Pulse Rate Pulse Rate [Pulse Oximeter] 97 70 105 H Respiratory Rate 18 18 18 Blood Pressure Blood Pressure [Le ft Arm] 114/70 134/99 H 106/62 Pulse Oximetry 98 95 98 Oxygen Delivery Me thod Room Air Room Air Room Air Oxygen Flow Rate 10/14/22 18:00 10/14/22 21:03 10/14/22 19:00 Temperature 98.3 F 98.2 F Pulse Rate Pulse Rate [Pulse Oximeter] 89 86 Respiratory Rate 18 18 Blood Pressure Blood Pressure [Le ft Arm] 125/74 128/78 Pulse Oximetry 94 97 Oxygen Delivery Me thod Room Air Room Air Oxygen Flow Rate 10/14/22 20:00 10/14/22 22:59 10/15/22 00:12 Temperature 98.7 F Pulse Rate Pulse Rate [Pulse Oximeter] 82 76 81 Respiratory Rate 18 18 18 Blood Pressure Blood Pressure [Le ft Arm] 146/85 H 132/78 145/85 H Pulse Oximetry 95 96 93 Oxygen Delivery Me thod Room Air Room Air Room Air Oxygen Flow Rate 10/15/22 03:28 Temperature 98.6 F Pulse Rate Pulse Rate [Pulse Oximeter] 74 Respiratory Rate 16 Blood Pressure Blood Pressure [Le ft Arm] 135/82 Pulse Oximetry 95 Oxygen Delivery Me thod Room Air Oxygen Flow Rate DS: Data Data Completed and Pending Labs on day of discharge: Labs from last 24 hours 10/15/22 10/15/22 06:24 06:24 WBC 13.76 H RBC 3.51 L Hgb 11.0 L Hct 31.9 L MCV 91 MCH 31 MCHC 35 RDW Coeff of [place] 11.9 Plt Count 220 Neut % (Auto) 87.3 H Lymph % (Auto) 6.8 L [place] % (Auto) 5.5 Eos % (Auto) 0.0 Baso % (Auto) 0.1 Neut # (Auto) 12.00 H Lymph # (Auto) 0.90 [place] # (Auto) 0.80 Eos # (Auto) 0.00 Baso # (Auto) 0.00 Sodium 129 L Potassium 4.1 BUN 21 Creatinine 1.2 Estimated Creat Clear 82.63 Estimated GFR 75 Discharge Plan Discharge Disposition: Home, Self-Care Discharging Surgeon: Parviz Howard Follow-Up Appointment: 1 week PO with DAVID Mcdaniels Prescriptions: New aspirin 81 mg tablet,delayed release (DR/EC) 81 mg PO BID Qty: 50 0RF Rx Instructions: Medication to help prevent blood clots postoperatively; take TWICE daily. acetaminophen 500 mg capsule 500 - 1,000 mg PO Q6H MDD 4000mg PRNQty: 100 0RF oxycodone 5 mg tablet 2.5 - 5 mg PO Q4-6H MDD 6 PRN (Reason: pain) Qty: 42 0RF Rx Instructions: Take as needed for postop pain: 2.5mg mild pain, 5mg moderate-severe pain; wean as tolerated. rivaroxaban 10 mg tablet 10 mg PO DAILY Qty: 4 0RF Rx Instructions: Medication for deep vein clot prevention post surgery. Complete this medication before starting Aspirin. sennosides-docusate sodium [Senna-S] 8.6-50 mg tablet 1 - 4 tab-cap PO BID PRN (Reason: constipation) Qty: 60 0RF Rx Instructions: Hold medication if experiencing loose stools. Continued clobetasol 0.05 % cream 1 applic TOPICAL BID PRN Label Comments: APPLY SPARINGLY TO RASH ON TRUNK AND EXTREMITIES TWICE DAILY FOR 2 WEEKS, STOP FOR 1 WK, THEN RESUME lisinopril-hydrochlorothiazide 10-12.5 mg tablet 2 tab PO DAILY Label Comments: TAKE 2 TABLETS BY MOUTH DAILY simvastatin 20 mg tablet 20 mg PO HS Label Comments: TAKE 1 TABLET BY MOUTH EVERYDAY AT BEDTIME Discontinued ibuprofen [Advil] 200 mg tablet 400 mg PO Q6H oxycodone 5 mg tablet 5 - 10 mg PO Q4H PRN Label Comments: TAKE 1-2 TABLETS BY MOUTH EVERY 4 HRS NEEDED FOR MODERATE PAIN OR SCORE 4- 6 OF 10 Activity Level: Activity as Tolerated, Weight Bearing as Tolerated and Use Walker Activity Detail: Wound: ?Do not remove original dressing; we will remove this at first postop visit in 1 week. Only remove dressing if integrity is in question. ?No immersing wound in water; showering okay; light scrub with your hand and body soap, rinse, dab dry ?Sutures are under the skin, will dissolve; allow surgical glue to come off naturally; do not scrub the wound or apply ointments/lotions ?Call our office with any redness that streaks, excessive drainage from the wound, or wound gapping. Ice/Elevate: ?Ice as needed for swelling and discomfort (cryocuff or ice pack); elevate frequently above the heart SALOME socks: ?Wear for 1 month, remove for 1 hour 3 times per day ?These are frustrating to take on/off, but are important for blood clot prevention for 1 month after surgery Blood Clot Prevention (DVT): ?Medication: Rivaroxaban, and transition to 81 mg aspirin by mouth twice daily (total one month of protection). Driving: ?Do not drive while taking narcotic pain medication ?Anticipate 4-6 weeks no driving if operative leg is driving leg Dental: ?No elective dental work for 6 months post-op. If there is an urgent/emergent dental need, contact our office for an antibiotic prescription. Smoking/Alcohol: ?Do not smoke; do no drink alcohol especially when taking postoperative oral narcotic medication Seek Care from you Primary Care Provider if you experience the following issues in the postoperative phase and beyond: ?Bacterial infections such as: pneumonia, bacterial skin infection (cellulitis), UTI, high fever, chills unrelated to the operative body part - call your primary care physician urgently for treatment in hopes to protect your health and the metal implant. Referrals: ?PT, OT per patient preference - evaluate treat total hip arthroplasty protocol (gait training, ROM, ADLs) Follow up: ?Ortho surgeon follow-up in 6 weeks; repeat radiographs AP pelvis, cross-table lateral operative hip ?PA-C visit in 1 week *If there are any acute concerns regarding your surgery, please call our orthopedic clinic ([phone]) Discharge Diet: Regular Patient Instructions: Surgical Site Infections (DC) Forms: Work/School Release Follow-up: Evangelist Benjamin MD [Primary Care Provider] - Discharge Orders: Discharge Order (Routine); Ordered 10/15/22 Ordered By: Arslan Marroquin Consulting provider completed their portion of the discharge: Yes
--- NOTE | 2022-10-15 10:52 | PC.NURSE ---
[place] by Arslan griffiths PA, PT, OT and myself this am. Pt counseled by Arslan about not taking so much ibuprofen when he is discharged per request of Dr. Merida. Adequate I and O. Last dose of IV Ancef infused w/o difficulty. Pt rating his pain 2 out of 10. Please see eMar for medications provided. Active ice to CDI mepilex at right hip surgical site. IV site discontinued. Patient verbalized understanding of d/c diagnosis, home meds, pain management plan, wound care, f/up appt with aye DICK for dressing removal and symptoms to report urgently to physician. Pt discharged via w/c with all personal belongings to own home @ 10:30 with as transportation.
== END 2022-10-15 10:30 | disposition home or self-care (01) ==
LOC: OR 09:38 → MEDSURG 11:11
PROVIDERS: PCP Family Medicine; Visit Provider Orthopaedic Surgery Sports Medicine
PROC: (CPT 27130; principal; 2022-10-14 11:30)
DX: M16.11 Unilateral primary osteoarthritis, right hip (principal); G47.30 Sleep apnea, unspecified; I10 Essential (primary) hypertension; M79.604 Pain in right leg; E66.01 Morbid (severe) obesity due to excess calories; Z68.34 Body mass index [BMI] 34.0-34.9, adult; E78.00 Pure hypercholesterolemia, unspecified
CPT/HCPCS: 27130; 01214; 36415; 64450; 73501; 76000; 76942; 82565; 84132; 84295; 84520; 85025; 97116; 97161; 97165; 97535; A9270; C1776; J0330; J0690; J1100; J1170; J2250; J2370; J2405; J2704; J2710; J2795; J3010; J3490; J7120

== ENCOUNTER 2022-11-04 08:30 | Outpatient (RCR) | payer OTHER, SELFPAY | END 2022-12-13 10:22 | disposition home or self-care (01) | PROVIDERS: PCP Family Medicine; Visit Provider Orthopaedic Surgery Sports Medicine | DX: M16.11 Unilateral primary osteoarthritis, right hip (principal); Z96.641 Presence of right artificial hip joint; Z51.89 Encounter for other specified aftercare | CPT/HCPCS: 97110; 97140; 97161; 97164 ==

== ENCOUNTER 2023-05-28 15:45 | Outpatient (RCR) | payer BC, OTHER, SELFPAY | END 2023-09-25 23:59 | disposition home or self-care (01) | PROVIDERS: PCP Family Medicine; Visit Provider Orthopaedic Surgery Sports Medicine | DX: M19.011 Primary osteoarthritis, right shoulder (principal); S46.211S Strain of muscle, fascia and tendon of other parts of biceps, right arm, sequela; S46.011A Strain of muscle(s) and tendon(s) of the rotator cuff of right shoulder, initial encounter; Z98.890 Other specified postprocedural states; M25.511 Pain in right shoulder; M25.611 Stiffness of right shoulder, not elsewhere classified; M99.07 Segmental and somatic dysfunction of upper extremity; Z51.89 Encounter for other specified aftercare | CPT/HCPCS: 97110; 97140; 97161 ==